=== PATIENT | male | born 2000 | race Two or more races ===

== ENCOUNTER 2019-11-21 19:11 | Emergency (ER) | payer OTHER ==
[~2019-11-21] VITALS: Ht 170.2 cm; Wt 61.2 kg
--- NOTE | 2019-11-21 19:30 | NUR ---
BIBS FOR C.O L INDEX FINGER LACERATION WHILE WORKING WITH "BREAD KNIFE". PT UNSURE IF HE IS UP TO DATE WITH TETANUS SHOT HOWEVER HE REFUSED TO GET VACCINATED TODAY.
[2019-11-21] MEDS ORDERED: IBUPROFEN 600 MG TABLET PO ONE ×2 (19:53→20:00)
--- NOTE | 2019-11-21 19:54 | NUR ---
TECH AT THE BED SIDE FOR LACERATION CARE
--- NOTE | 2019-11-21 20:07 | NUR ---
PT RECEIVED WOUND CARE AND FINGER SPLINT. MEDICATED ORDERED AND MEDICALLY CLEAR FOR D/C. Patient discharged to home in stable condition. Rx and Written and verbal after care instructions given. Patient verbalizes understanding of instruction. pt was instructed to see his PCP or come back to the ER in 48 hours for wound check
[2019-11-21 20:10] VITALS: BP 119/69
== END 2019-11-21 20:10 | disposition home or self-care (01) ==
LOC: ER 19:13
DX: S61.211A Laceration without foreign body of left index finger without damage to nail, initial encounter (principal); W26.0XXA Contact with knife, initial encounter; Y93.89 Activity, other specified; Y92.89 Other specified places as the place of occurrence of the external cause; Y99.8 Other external cause status